=== PATIENT | female | born 2000 | race Caucasian/White ===

== ENCOUNTER → 2021-01-07 | Outpatient (REF) ==
--- NOTE | 2021-01-07 14:21 | REP ---
INDICATION: ARTHRITIS COMPARISON: None. TECHNIQUE: AP and lateral views of the left tibia/fibula. FINDINGS: Knee joint appears normal. No evidence for acute fracture or dislocation. Evidence for prior open reduction and fixation of the distal fibula and tibia. Ankle mortise appears intact without significant degenerative changes. Clinical correlation recommended. IMPRESSION: Evidence for prior ankle fracture. No obvious significant degenerative changes appreciated on current examination. <Electronically signed by Maximus Wise > 01/07/21 1606
== END ==
LOC: M PLAIMG 13:47
PROVIDERS: ATTEND Internal Medicine
DX: M19.90 Unspecified osteoarthritis, unspecified site (principal)

== ENCOUNTER → 2022-10-24 | Outpatient (REF) | LOC: M PLAIMG 09:12 | PROVIDERS: ATTEND Internal Medicine | DX: M25.572 Pain in left ankle and joints of left foot (principal) ==